=== PATIENT | male | born 1965 | race African-American/Black ===

== ENCOUNTER 2022-02-08 12:12 | Emergency (ER) | payer OTHER ==
[2022-02-08 12:30] VITALS: BP 128/67; PULSE 86; RESP 19; BMI 36.9
[2022-02-08] MEDS ORDERED: BEBTELOVIMAB (EUA) 175 MG/2 ML VIAL IVPUSH ONE (12:37)
[2022-02-08 15:28] VITALS: TEMP 98.9
== END 2022-02-08 15:46 | disposition home or self-care (01) ==
LOC: JCOVINFU 12:12
DX: U07.1 COVID-19 (principal)
CPT/HCPCS: 99284-25; M0222; Q0222

== ENCOUNTER 2022-02-21 20:16 | Observation (INO) | payer OTHER ==
[2022-02-21] MEDS: SODIUM CHLORIDE 3,538 ML IV ONE ×3 (21:33→22:57)
[2022-02-21] MEDS ORDERED: ACETAMINOPHEN 1000 MG/100 ML BAG IVPB ONE (21:37)
[2022-02-21] MEDS ORDERED: ACETAMINOPHEN INJECTION 100 ML IVPB ONE (21:43)
[2022-02-21 21:50] LABS: VENOUS BASE EXCESS 3.5 mmol/L (-2-2); VENOUS O2 SATURATION 92.8 % (70-80); VENOUS PCO2 39.5 mmHg (38-52); VENOUS PH 7.461 (7.310-7.410)
[2022-02-21 21:58] LABS: INR 1.19 (0.83-1.09); PROTHROMBIN TIME (PATIENT) 13.7 SEC (9.7-13.0)
[2022-02-21 22:01] LABS: ACTIVATED PTT 18.5 SECONDS (25.2-36.5)
[2022-02-21 22:13] LABS: CALCIUM 8.8 mg/dL (8.5-10.1)
[2022-02-21 22:14] LABS: ALBUMIN 3.6 g/dl (3.4-5.0); BLOOD UREA NITROGEN 19.8 mg/dL (7-18)
[2022-02-21 22:17] LABS: CREATININE 1.6 mg/dL (0.55-1.3)
[2022-02-21 22:18] LABS: BILIRUBIN,TOTAL 0.6 mg/dL (0.2-1); TOT PROT 7.4 g/dl (6.4-8.2)
[2022-02-21] MEDS ORDERED: HYDROmorphone HCL CARPU-JECT 2 MG/1 ML DISP.SYRIN IVPUSH ONE (22:48)
[2022-02-21] MEDS ORDERED: REMDESIVIR 200 MG in SODIUM CHLORIDE 250 ML IVPB ONE (22:51)
[2022-02-21 23:01] LABS: BASO % 1.8 % (0-2.0); EOS % 0.4 % (0-4.5); HEMATOCRIT 30.8 % (35.4-49); HEMOGLOBIN 10.7 GM/dL (11.7-16.9); LYMPH % 21.3 % (8-40); MCH 25.5 pg (25.7-33.7); MCHC 34.7 g/dl (32.0-35.9); MEAN CELL VOLUME 73.5 fl (80-96); MEAN PLT VOLUME 6.8 fl (7.5-11.1); NEUT % 63.5 % (42.8-82.8); PLATELET COUNT 329 10^3/uL (134-434); RBC 4.19 M/mm3 (4.00-5.60); RDW 15.2 % (11.9-15.9)
[2022-02-21 23:50] LABS: ANISOCYTOSIS 1+; MACROCYTOSIS 0; TARGET CELLS 1+
[2022-02-22] MEDS ORDERED: REMDESIVIR 200 MG in SODIUM CHLORIDE 250 ML IVPB ONE
[2022-02-22 02:28] LABS: EPI CELLS 1 /uL (0-25.1); HYALINE CASTS 7 /uL (0-3.1); PH,URINE 5.5 (5.0-8.0); URINE APPEARANCE CLOUDY; URINE BACTERIA >9,000 /uL (0-1359); URINE BILIRUBIN NEGATIVE (NEGATIVE); URINE COLOR YELLOW; URINE GLUCOSE (UA) NEGATIVE (NEGATIVE); URINE KETONE NEGATIVE (NEGATIVE); URINE LEUK ESTERASE 2+ (NEGATIVE); URINE NITRITE POSITIVE (NEGATIVE); URINE PROTEIN NEGATIVE (NEGATIVE); URINE RBC 9 /uL (0-23.9); URINE WBC 403 /uL (0-25.8)
[2022-02-22] MEDS: SODIUM CHLORIDE 1,000 ML IV SCH ×3 (04:48→21:50)
[2022-02-22 06:38] VITALS: BMI 35.7
[2022-02-22] MEDS: ASPIRIN COATED 81 MG TABLET.EC PO SCH (09:01)
[2022-02-22] MEDS ORDERED: PANTOPRAZOLE 40 MG TABLET PO SCH (10:00)
[2022-02-22] MEDS ORDERED: ASPIRIN 81 MG CHEWABLE TABLETS PO SCH (10:00)
[2022-02-22] MEDS: ACETAMINOPHEN 325 MG TABLET (FP) PO PRN ×2 (11:10→21:49)
[2022-02-22 14:07] LABS: HEMATOCRIT 30.5 % (35.4-49); HEMOGLOBIN 10.7 GM/dL (11.7-16.9); MCHC 35.1 g/dl (32.0-35.9); MEAN CELL VOLUME 73.8 fl (80-96); MEAN PLT VOLUME 6.5 fl (7.5-11.1); PLATELET COUNT 326 10^3/uL (134-434); RBC 4.13 M/mm3 (4.00-5.60); RDW 15.6 % (11.9-15.9); WHITE BLOOD COUNT 8.9 K/mm3 (4.0-10.0)
[2022-02-22 14:34] LABS: ALBUMIN 2.9 g/dl (3.4-5.0); BLOOD UREA NITROGEN 12.8 mg/dL (7-18)
[2022-02-22 14:37] VITALS: RESP 18
[2022-02-22 14:38] LABS: TOT PROT 6.2 g/dl (6.4-8.2)
[2022-02-22 14:39] LABS: BILIRUBIN,TOTAL 0.4 mg/dL (0.2-1)
[2022-02-22] MEDS ORDERED: CEFTRIAXONE 1 GM in DEXTROSE 5%-WATER - 50 ML IVPB ONE (17:00)
[2022-02-22] MEDS ORDERED: SULFAMETHOXAZOLE/TRIMETHOPRIM 800MG/160MG D.S. TABLET PO SCH (22:00)
[2022-02-22] MEDS ORDERED: ATORVASTATIN CA 80 MG TABLET (FP) PO SCH (22:00)
[2022-02-23] MEDS ORDERED: REMDESIVIR 100 MG in SODIUM CHLORIDE 250 ML IVPB SCH
[2022-02-23 06:11] VITALS: TEMP 98.5
[2022-02-23 09:26] LABS: BASO % 0.7 % (0-2.0); EOS % 0.8 % (0-4.5); LYMPH % 27.9 % (8-40); MCH 25.5 pg (25.7-33.7); MCHC 34.4 g/dl (32.0-35.9); MEAN CELL VOLUME 74.2 fl (80-96); MEAN PLT VOLUME 7.4 fl (7.5-11.1); MONO % 12.4 % (3.8-10.2); NEUT % 58.2 % (42.8-82.8); PLATELET COUNT 366 10^3/uL (134-434); RBC 4.31 M/mm3 (4.00-5.60); RDW 15.4 % (11.9-15.9); WHITE BLOOD COUNT 9.8 K/mm3 (4.0-10.0)
[2022-02-23 09:48] LABS: CALCIUM 8.3 mg/dL (8.5-10.1)
[2022-02-23] MEDS: ASPIRIN COATED 81 MG TABLET.EC PO SCH (09:50)
[2022-02-23 09:53] LABS: BILIRUBIN,TOTAL 0.6 mg/dL (0.2-1); TOT PROT 6.4 g/dl (6.4-8.2)
[2022-02-23] MEDS ORDERED: SULFAMETHOXAZOLE/TRIMETHOPRIM 800MG/160MG D.S. TABLET PO SCH (10:00)
[2022-02-23 10:02] VITALS: BP 144/81; PULSE 85
== END 2022-02-23 11:25 | disposition home or self-care (01) ==
LOC: JER 20:16 → JERBED 23:12 → J5S 02-22 05:25
PROVIDERS: ADMIT Family Medicine; ATTEND Family Medicine
PROC: 3E033NZ Introduction of Analgesics, Hypnotics, Sedatives into Peripheral Vein, Percutaneous Approach (ICD-10-PCS; principal; 2022-02-21)
PROC: 3E03329 Introduction of Other Anti-infective into Peripheral Vein, Percutaneous Approach (ICD-10-PCS; 2022-02-21)
PROC: 3E0337Z Introduction of Electrolytic and Water Balance Substance into Peripheral Vein, Percutaneous Approach (ICD-10-PCS; 2022-02-21)
PROC: 3E033GC Introduction of Other Therapeutic Substance into Peripheral Vein, Percutaneous Approach (ICD-10-PCS; 2022-02-21)
DX: U07.1 COVID-19 (principal); A41.9 Sepsis, unspecified organism; N39.0 Urinary tract infection, site not specified; E86.0 Dehydration; I95.9 Hypotension, unspecified; I10 Essential (primary) hypertension; E66.9 Obesity, unspecified; Z68.35 Body mass index [BMI] 35.0-35.9, adult; E03.9 Hypothyroidism, unspecified; R30.0 Dysuria; Z87.891 Personal history of nicotine dependence
CPT/HCPCS: 0241U-QW; 36415; 71045-TC-FY; 71250-TC; 76775-TC; 80053; 81003; 82803; 82962; 83605; 84484; 85025; 85027; 85610; 85730; 87040; 87086; 87186; 93005; 93010; 99285-25; C9399; G0378

== ENCOUNTER 2023-05-07 08:35 | Inpatient (IN) | payer OTHER ==
[2023-05-07 08:59] VITALS: BMI 37.2
[2023-05-07] MEDS ORDERED: BUPIVACAINE HCL/PF 2.5 MG/ML - 30 ML VIAL IJ ONE (09:24)
[2023-05-07] MEDS ORDERED: MIDAZOLAM HCL 2 MG/2 ML SINGLE DOSE VIAL ONE (10:42)
[2023-05-07] MEDS ORDERED: SUCCINYLCHOLINE CHLORIDE 200 MG/10 ML SYRINGE ONE (10:42)
[2023-05-07] MEDS ORDERED: PROPOFOL 40 ML ONE (10:42)
[2023-05-07] MEDS ORDERED: ROCURONIUM BROMIDE 50 MG/5 ML SYRINGE ONE (10:42)
[2023-05-07] MEDS ORDERED: ceFAZolin SODIUM 1 GM VIAL ONE (11:03)
[2023-05-07] MEDS ORDERED: HYDROmorphone HCL/PF 1 MG/ML VIAL ONE (11:03)
[2023-05-07] MEDS ORDERED: ACETAMINOPHEN INJECTION 100 ML IVPB ONE (11:42)
[2023-05-07] MEDS ORDERED: ONDANSETRON 4 MG/2 ML VIAL ONE (12:33)
[2023-05-07] MEDS ORDERED: ONDANSETRON 4 MG/2 ML VIAL IVPUSH PRN ×2 (12:41→12:55)
[2023-05-07] MEDS ORDERED: HYDROmorphone HCL/PF 1 MG/ML VIAL IVPB PRN (12:46)
[2023-05-07] MEDS ORDERED: METOCLOPRAMIDE HCL INJECTION 10 MG/2 ML VIAL ONE (13:08)
[2023-05-07] MEDS: METOCLOPRAMIDE HCL INJECTION 10 MG/2 ML VIAL IVPB SCH ×2 (14:00→18:52)
[2023-05-07 14:03] LABS: HEMATOCRIT 37.2 % (35.4-49); HEMOGLOBIN 12.2 G/dL (11.7-16.9); MCH 26.1 pg (25.7-33.7); MCHC 32.7 g/dl (32.0-35.9); MEAN CELL VOLUME 79.6 fl (80-96); MEAN PLT VOLUME 7.7 fl (7.5-11.1); PLATELET COUNT 292.2 10^3/uL (134-434); RBC 4.67 10^6/uL (4.00-5.60); RDW 16.8 % (11.9-15.9); WHITE BLOOD COUNT 8.2 10^3/uL (4.0-10.8)
[2023-05-07 14:16] LABS: ALBUMIN 4.1 g/dl (3.4-5.0); BILIRUBIN,TOTAL 0.6 mg/dl (0.2-1); CALCIUM 8.9 mg/dl (8.5-10.1); CREATININE 1.2 mg/dl (0.6-1.3); POTASSIUM 3.7 mmol/L (3.5-5.1); TOT PROT 6.2 g/dl (6.4-8.2)
[2023-05-07] MEDS: HYDROmorphone HCL/PF 1 MG/ML VIAL IVPB PRN (18:52)
[2023-05-07] MEDS: FAMOTIDINE 20 MG/50 ML IVPB 20 MG/50 ML MG IVPB SCH (21:17)
[2023-05-07 22:44] LABS: HEMOGLOBIN 12.3 G/dL (11.7-16.9); MCH 26.4 pg (25.7-33.7); MCHC 33.3 g/dl (32.0-35.9); MEAN CELL VOLUME 79.3 fl (80-96); MEAN PLT VOLUME 7.1 fl (7.5-11.1); PLATELET COUNT 285.7 10^3/uL (134-434); RBC 4.66 10^6/uL (4.00-5.60); RDW 16.7 % (11.9-15.9); WHITE BLOOD COUNT 9.1 10^3/uL (4.0-10.8)
[2023-05-07 23:01] LABS: ALBUMIN 4.2 g/dl (3.4-5.0); BILIRUBIN,TOTAL 0.8 mg/dl (0.2-1); CALCIUM 8.7 mg/dl (8.5-10.1); CREATININE 1.1 mg/dl (0.6-1.3); POTASSIUM 4.2 mmol/L (3.5-5.1); TOT PROT 6.4 g/dl (6.4-8.2)
[2023-05-08] MEDS: METOCLOPRAMIDE HCL INJECTION 10 MG/2 ML VIAL IVPB SCH ×4 (00:04→20:27)
[2023-05-08] MEDS: HYDROmorphone HCL/PF 1 MG/ML VIAL IVPB PRN ×2 (00:45→06:17)
[2023-05-08] MEDS: SODIUM CHLORIDE 1,000 ML IV SCH ×2 (09:30→13:07)
[2023-05-08] MEDS: FAMOTIDINE 20 MG/50 ML IVPB 20 MG/50 ML MG IVPB SCH ×2 (09:31→21:11)
[2023-05-08] MEDS: LACTATED RINGERS SOLUTION 1,000 ML IV SCH ×2 (09:31→13:07)
[2023-05-08 09:33] LABS: HEMATOCRIT 35.5 % (35.4-49); HEMOGLOBIN 11.7 G/dL (11.7-16.9); MCH 26.3 pg (25.7-33.7); MEAN CELL VOLUME 79.7 fl (80-96); MEAN PLT VOLUME 7.8 fl (7.5-11.1); PLATELET COUNT 299.1 10^3/uL (134-434); RBC 4.45 10^6/uL (4.00-5.60); RDW 16.8 % (11.9-15.9); WHITE BLOOD COUNT 7.8 10^3/uL (4.0-10.8)
[2023-05-08 10:09] LABS: ALBUMIN 3.9 g/dl (3.4-5.0); BILIRUBIN,TOTAL 0.9 mg/dl (0.2-1); CALCIUM 8.3 mg/dl (8.5-10.1); CREATININE 1.1 mg/dl (0.6-1.3); TOT PROT 5.9 g/dl (6.4-8.2)
[2023-05-08 12:44] LABS: HIV INTERPRETATION NEGATIVE (NEGATIVE)
[2023-05-08] MEDS ORDERED: SODIUM CHLORIDE 1,000 ML IV SCH (13:45)
[2023-05-08] MEDS: RAMIPRIL 2.5 MG CAPSULE PO SCH (13:56)
[2023-05-08] MEDS: METOPROLOL TARTRATE 25 MG TABLET (FP) PO SCH (13:56)
[2023-05-08] MEDS: ASPIRIN 81 MG CHEWABLE TABLETS PO SCH (13:56)
[2023-05-08] MEDS: CLOPIDOGREL BISULFATE 75 MG TABLET (FP) PO SCH (13:56)
[2023-05-08 17:36] VITALS: RESP 19
[2023-05-08] MEDS: oxyCODONE HCL 5 MG TABLET PO PRN (21:11)
[2023-05-08] MEDS: ACETAMINOPHEN 325 MG TABLET (FP) PO PRN (21:12)
[2023-05-09] MEDS: METOCLOPRAMIDE HCL INJECTION 10 MG/2 ML VIAL IVPB SCH ×2 (01:53→06:29)
[2023-05-09] MEDS: ACETAMINOPHEN 325 MG TABLET (FP) PO PRN (06:29)
[2023-05-09] MEDS: oxyCODONE HCL 5 MG TABLET PO PRN (06:29)
[2023-05-09 08:13] VITALS: BP 134/74; PULSE 85; TEMP 98.2
[2023-05-09] MEDS: RAMIPRIL 2.5 MG CAPSULE PO SCH (09:35)
[2023-05-09] MEDS: ASPIRIN 81 MG CHEWABLE TABLETS PO SCH (09:35)
[2023-05-09] MEDS: CLOPIDOGREL BISULFATE 75 MG TABLET (FP) PO SCH (09:35)
[2023-05-09] MEDS: METOPROLOL TARTRATE 25 MG TABLET (FP) PO SCH (09:36)
[2023-05-09] MEDS: FAMOTIDINE 20 MG/50 ML IVPB 20 MG/50 ML MG IVPB SCH (09:36)
== END 2023-05-09 13:21 | disposition home or self-care (01) | DRG 621 ==
LOC: FM/S 08:35 → EDSTATUS 10:30 → FM/S 16:51
PROVIDERS: ADMIT Surgery; ATTEND Surgery
PROC: 0DNW4ZZ Release Peritoneum, Percutaneous Endoscopic Approach (ICD-10-PCS; 2023-05-07)
PROC: 0DJ04ZZ Inspection of Upper Intestinal Tract, Percutaneous Endoscopic Approach (ICD-10-PCS; 2023-05-07)
PROC: 0FB24ZX Excision of Left Lobe Liver, Percutaneous Endoscopic Approach, Diagnostic (ICD-10-PCS; 2023-05-07)
PROC: 0DB64Z3 Excision of Stomach, Percutaneous Endoscopic Approach, Vertical (ICD-10-PCS; principal; 2023-05-07 11:10)
DX: E66.01 Morbid (severe) obesity due to excess calories (principal); Z68.45 Body mass index [BMI] 70 or greater, adult; I25.10 Atherosclerotic heart disease of native coronary artery without angina pectoris; I10 Essential (primary) hypertension; R16.0 Hepatomegaly, not elsewhere classified; K66.0 Peritoneal adhesions (postprocedural) (postinfection); R73.03 Prediabetes; Z95.5 Presence of coronary angioplasty implant and graft
CPT/HCPCS: 36415; 74240-TC-FY; 80053; 84484; 85027; 86850; 86900; 86901; 87389; 88307-TC; 93005; 94760